=== PATIENT | male | born 1960 | race Caucasian/White ===

== ENCOUNTER 2018-10-02 06:16 | Day surgery (SDC) | payer MEDICAID, MEDICARE, OTHER ==
[~2018-10-02] VITALS: Ht 174 cm; Wt 97.5 kg
[~2018-10-02 06:16] MED LIST: SODIUM CHLORIDE 0.9% 1000ML 1,000 ML IV ONE
[2018-10-02 06:52] VITALS: BP 124/86
[2018-10-02] MEDS ORDERED: HYDR-4060 PO (06:59)
[2018-10-02] MEDS ORDERED: NAPR-1023 PO (06:59)
[2018-10-02] MEDS ORDERED: GABA-531 PO (06:59)
[2018-10-02] MEDS ORDERED: PANT40TA PO (06:59)
[2018-10-02] MEDS ORDERED: PROPOFOL 10 MG/ML 20ML VIAL IV ONE (08:39)
[2018-10-02] MEDS ORDERED: LIDOCAINE HCL 2% 20ML ONE (08:39)
[2018-10-02 08:59] VITALS: BP 91/48
[2018-10-02 09:07] VITALS: BP 99/58
[2018-10-02 09:11] VITALS: BP 124/80
[2018-10-02 09:17] VITALS: BP 122/83
== END 2018-10-02 09:29 | disposition home or self-care (01) ==
LOC: ENDO 06:16 → DAH 06:16 → ENDO 09:29
PROVIDERS: ATTEND Internal Medicine Gastroenterology
DX: D12.2 Benign neoplasm of ascending colon (principal); K63.5 Polyp of colon; K21.9 Gastro-esophageal reflux disease without esophagitis; F15.90 Other stimulant use, unspecified, uncomplicated; Z79.899 Other long term (current) drug therapy; Z87.891 Personal history of nicotine dependence; Z82.49 Family history of ischemic heart disease and other diseases of the circulatory system; Z83.3 Family history of diabetes mellitus
CPT/HCPCS: 45380; 88305; A4606; J2704; J3490; J7030

== ENCOUNTER → 2019-03-31 | Outpatient (CLI) | payer MEDICAID ==
[~2019-03-31] MED LIST changes: +GABA-531 PO; +HYDR-4060 PO; +NAPR-1023 PO; +PANT40TA PO; -SODIUM CHLORIDE 0.9% 1000ML 1,000 ML IV ONE
== END | disposition home or self-care (01) ==
LOC: RAH 12:22
PROVIDERS: ATTEND Family Medicine
DX: N32.89 Other specified disorders of bladder (principal); N18.3 Chronic kidney disease, stage 3 (moderate)
CPT/HCPCS: 76770

== ENCOUNTER 2023-02-27 14:48 | Emergency (ER) | payer MEDICAID ==
[~2023-02-27] VITALS: Ht 172.7 cm; Wt 90.7 kg
[~2023-02-27 14:48] MED LIST changes: +AMOX1TAB16 PO; +DOXY100T2 PO; +FINA5TAB41 PO; -GABA-531 PO; -HYDR-4060 PO; -NAPR-1023 PO; -PANT40TA PO; +TAMS-1 PO
[2023-02-27 16:35] LABS: APPEARANCE,URINE CLEAR (CLEAR); BILIRUBIN,URINE NEGATIVE (NEGATIVE); COLOR,URINE COLORLESS (YELLOW); GLUCOSE, URINE (UA) NEGATIVE (NEGATIVE); KETONES,URINE NEGATIVE (NEGATIVE); LEUKOCYTE ESTERASE ,URINE NEGATIVE Leu/uL (NEGATIVE); NITRATE,URINE NEGATIVE (NEGATIVE); PROTEIN,URINE NEGATIVE (NEGATIVE); UROBILINOGEN,URINE 0.2 mg/dL (0.2-1.0)
[2023-02-27 16:46] LABS: ADD UA MICROSCOPIC YES
[2023-02-27 17:09] LABS: MUCUS,URINE RARE LPF (None Seen)
[2023-02-27 18:20] VITALS: BP 132/85; PULSE 70; RESP 16; O2SAT 99
[2023-02-27] MEDS ORDERED: CLIN-141 PO (18:25)
[2023-02-27] MEDS ORDERED: TAMS-1 PO (18:25)
[2023-02-27] MEDS ORDERED: IBUP-2077 PO (18:25)
== END 2023-02-27 18:41 | disposition home or self-care (01) ==
LOC: EDH 14:48
DX: N40.0 Benign prostatic hyperplasia without lower urinary tract symptoms (principal); K04.7 Periapical abscess without sinus; K02.9 Dental caries, unspecified
CPT/HCPCS: 81001

== ENCOUNTER 2023-08-25 21:25 | Emergency (ER) | payer MEDICAID ==
[~2023-08-25] VITALS: Ht 172.7 cm; Wt 96.6 kg
[~2023-08-25 21:25] MED LIST changes: +CLIN-141 PO; +IBUP-2077 PO
[2023-08-25 21:56] VITALS: BP 119/72; PULSE 78; RESP 16; O2SAT 96
[2023-08-25] MEDS: LACTULOSE 20 GM/30 ML UDCUP PO ONE (22:39)
[2023-08-25] MEDS ORDERED: DOCU-116 PO (22:52)
[2023-08-25] MEDS ORDERED: POLY17PO4 PO (22:52)
[2023-08-25] MEDS ORDERED: TAMS-1 PO (22:52)
== END 2023-08-25 23:08 | disposition home or self-care (01) ==
LOC: EDH 21:25
DX: K59.00 Constipation, unspecified (principal); Z79.899 Other long term (current) drug therapy; Z98.890 Other specified postprocedural states